=== PATIENT | male | born 1990 | race Caucasian/White ===

== ENCOUNTER 2017-02-04 21:59 | Emergency (ER) | payer OTHER ==
[~2017-02-04] VITALS: Ht 165.1 cm; Wt 120.2 kg
--- NOTE | ~2017-02-04 | CR72 ---
[facility]. [facility] A Service of [facility] RADIOLOGY TEXT RESULTS PATIENT: CHRISTIAN SWAIN LOCATION: SED : 90 UNIT #: [id number] AGE: [address]: Christian Santiago DO SEX: M ORDER DR: [id number] [place] [id number] E MR#: [id number] Acc #: [id number] NAME: CHRISTIAN SWAIN : 1990 SEX: M STUDY DATE/TIME: 02/04/2017 22:07 UNIT: SED ROOM: STUDY DESCRIPTION: CR Chest Single View Portable Attending Physician: (Res) Christian Santiago Ordering Physician: (Res) Christian Santiago MEDICAL IMAGING REPORT This report is preliminary unless electronic signature is present. EXAM Chest x-ray, 02/04/2017. HISTORY 26-year-old male in the ED complaining of acute onset chest pain and syncopal episode about 2 hours prior. TECHNIQUE AP portable chest x-ray. FINDINGS Heart size and pulmonary vascularity are within normal limits. The lungs are expanded and clear. No visible pulmonary infiltrate, pneumothorax or pleural effusion. IMPRESSION Negative chest. Dictated by... Chevy Hodges M.D. THIS IS AN ELECTRONICALLY VERIFIED REPORT Chevy Hodges M.D. at 02/05/2017 5:26 AM Cristofer TD: 02/04/2017 23:56 JOB #: [id number] MEDICAL IMAGING REPORT Page 1 of 1
--- NOTE | ~2017-02-04 | EKG ---
PATIENT: CHRISTIAN SWAIN UNIT #: [id number] Ventricular Rate: 97 BPM Atrial Rate: 97 BPM P-R Interval: 140 ms QRS Duration: 102 ms Q-T Interval: 340 ms QTC Calculation(Bezet): 431 ms P [place]: 29 degrees Calculated R [place]: 63 degrees Calculated T [place]: 6 degrees Diagnosis Line: Normal sinus rhythm Diagnosis Line: Non Specific ST Changes- Abnormality Diagnosis Line: Borderline ECG Diagnosis Line: No previous ECGs available Diagnosis Line: Confirmed by MELANI GUAJARDO MD ([id number]) on Diagnosis Line: 02/13/2017 9:56:50 PM INTERPRETING MD: COLE
--- NOTE | ~2017-02-04 | CT16 ---
[facility] A Service of [facility] RADIOLOGY TEXT RESULTS PATIENT: JEAN SWAIN LOCATION: SED : 90 UNIT #: [id number] AGE: [address]: Jean Santiago DO SEX: M ORDER DR: [id number] [place] [id number] E MR#: [id number] Acc #: [id number] NAME: JEAN SWAIN : 1990 SEX: M STUDY DATE/TIME: 02/05/2017 0:27 UNIT: SED ROOM: STUDY DESCRIPTION: CT Angio Chest for PE Attending Physician: Jean Santiago Ordering Physician: Jean Santiago MEDICAL IMAGING REPORT This report is preliminary unless electronic signature is present. EXAM CT chest with contrast, pulmonary arteriography protocol, 02/05/2017 HISTORY 26-year-old male in the ED complaining of chest pain and syncopal episode, beginning about 2 hours prior to arrival. TECHNIQUE CT examination of the chest with IV contrast. CTA MIP images of the pulmonary arteries were reformatted in multiple planes. This CT exam was performed with one or more of the following radiation dose reduction techniques: automatic control, adjustment of mA and/or kV according to patient size, and iterative reconstruction. FINDINGS No pulmonary embolism is demonstrated. Thoracic aorta is normal in caliber. Heart size is normal, there is no pericardial effusion. The lungs are expanded and clear. No pleural effusion. Limited upper abdominal images are unremarkable. IMPRESSION Negative chest CT examination using pulmonary arteriography protocol. Dictated by... Chevy Hodges M.D. THIS IS AN ELECTRONICALLY VERIFIED REPORT Chevy Hodges M.D. at 02/05/2017 5:26 AM KACEYW/kate TD: 02/05/2017 03:10 JOB #: [id number] [facility] A Service of [facility] RADIOLOGY TEXT RESULTS PATIENT: JEAN SWAIN LOCATION: SED : 90 UNIT #: [id number] AGE: [address]: Jean Santiago DO SEX: M ORDER DR: MEDICAL IMAGING REPORT Page 1 of 1
[2017-02-04] MEDS ORDERED: ULTRAM (22:07)
[2017-02-04 22:24] LABS: BASOPHIL# 0.3 X10e3 (0-0.3); EOSINOPHIL% 0.3 % (0.0-7.0); HEMATOCRIT 45.8 % (38.0-50.0); HEMOGLOBIN 15.7 gm/dL (13.0-16.0); LYMPHOCYTE# 3.7 X10e3 (1.0-3.5); LYMPHOCYTE% 23.9 % (17.0-45.0); MEAN CELL VOLUME 90.3 FL (83-96); MEAN CORPUSCULAR HGB CONC 34.3 g/dL (30-36); MEAN PLATELET VOLUME 9.9 FL (6.5-11.5); MONOCYTE# 1.1 X10e3 (0-1.0); MONOCYTE% 6.9 % (3.0-12.0); NEUTROPHIL# 10.3 X10e3 (1.5-7.1); NEUTROPHIL% 66.9 % (40-75); PLATELET COUNT 233 X10e3 (140-420); RED BLOOD COUNT 5.07 X10e (3.90-5.60); RED CELL DISTRIBUTION WIDTH 13.2 % (11.0-15.5); WHITE BLOOD COUNT 15.4 X10e3 (4.0-10.5)
[2017-02-04 22:25] LABS: DIFF IND NO
[2017-02-04 22:38] LABS: POC - CKMB <1.0 ng/mL (0.0-7.9); POC - TROPONIN <0.05 ng/mL (<=0.05)
[2017-02-04 22:48] LABS: URINE SOURCE CLEAN CATCH
[2017-02-04 22:51] LABS: URINE APPEARANCE CLEAR; URINE BILIRUBIN NEG (NEG); URINE BLOOD NEG (NEG); URINE COLOR YELLOW; URINE GLUCOSE NEG (NORM); URINE KETONE NEG (NEG); URINE LEUKOCYTE ESTERASE NEG (NEG); URINE NITRATE NEG (NEG); URINE PH 6.5 (5-8); URINE PROTEIN NEG (NEG)
[2017-02-04 22:52] LABS: PROTHROMBIN TIME (PATIENT) 11.8 SECONDS (9.5-12.4)
[2017-02-04 22:58] LABS: MICRO INDICATED? NO
[2017-02-04 23:00] LABS: PARTIAL THROMBOPLASTIN TIME 28.1 SECONDS (25.6-38.1)
[2017-02-04 23:01] LABS: AMPHETAMINE NEG (NEG); BARBITURATES NEG (NEG); BENZODIAZEPINES NEG (NEG); COCAINE NEG (NEG); MARIJUANA NEG (NEG); OPIATES NEG (NEG); TRICYCLIC ANTIDEPRESSANTS NEG (NEG); U METHADONE NEG (NEG)
[2017-02-04 23:06] LABS: ALBUMIN SERUM 4.5 g/dL (3.5-5.0); ALKALINE PHOSPHATASE 96 U/L (32-92); ALT (SGPT) 37 U/L (10-40); AST (SGOT) 24 U/L (10-42); BILIRUBIN,TOTAL 0.4 mg/dL (0.2-2.0); BLOOD UREA NITROGEN 13 mg/dL (9-23); CALCIUM SERUM 9.3 mg/dL (8.4-10.2); CARBON DIOXIDE 26 mmol/L (22-31); CHLORIDE 105 mmol/L (100-111); GLOM FILT RATE Estimated 103.4 mL/min (>60); GLUCOSE FASTING 111 mg/dL (70-110); MAGNESIUM 2.2 mg/dL (1.6-3.0); POTASSIUM 3.4 mmol/L (3.5-5.1); PROTEIN TOTAL SERUM 7.6 g/dL (6.0-8.3); SODIUM 140 mmol/L (135-145)
[2017-02-04 23:10] LABS: BILIRUBIN, DIRECT <0.1 mg/dL (0.0-0.2); BILIRUBIN,INDIRECT 0.3 mg/dL (0.0-0.9)
[2017-02-05] LABS: POC - CKMB <1.0 ng/mL (0.0-7.9); POC - TROPONIN <0.05 ng/mL (<=0.05)
== END 2017-02-05 01:19 | disposition home or self-care (01) ==
LOC: SED 21:59
PROVIDERS: Emergency Medicine
DX: R07.9 Chest pain, unspecified (principal); R55 Syncope and collapse; F17.210 Nicotine dependence, cigarettes, uncomplicated
CPT/HCPCS: 36415; 71010; 71275; 80048; 80076; 80307; 81003; 82553; 83735; 84484; 85025; 85379; 85610; 85730; 93005; 96360; 99285; Q9967